=== PATIENT | female | born 1945 | race Caucasian/White ===

== ENCOUNTER 2022-02-09 08:41 | Emergency (ER) | payer MEDICARE ==
[~2022-02-09] VITALS: Ht 154.9 cm; Wt 100.5 kg
[2022-02-09 08:49] VITALS: BP 187/73
[2022-02-09] MEDS ORDERED: BRIM5DRO16 RIGHTEYE (10:24)
[2022-02-09] MEDS ORDERED: DILT180C53 PO (10:24)
[2022-02-09] MEDS ORDERED: MELO-100 PO (10:24)
[2022-02-09] MEDS ORDERED: SYN0.088T PO (10:24)
[2022-02-09] MEDS ORDERED: DORZ10DR18 RIGHTEYE (10:24)
[2022-02-09] MEDS ORDERED: XAL0.005OS OP (10:24)
[2022-02-09] MEDS ORDERED: HYDR25TA4 PO (10:24)
== END 2022-02-09 10:45 | disposition home or self-care (01) ==
LOC: ER 08:42
DX: S46.911A Strain of unspecified muscle, fascia and tendon at shoulder and upper arm level, right arm, initial encounter (principal); M25.511 Pain in right shoulder; E11.9 Type 2 diabetes mellitus without complications; Z98.890 Other specified postprocedural states; Z88.0 Allergy status to penicillin; Z79.899 Other long term (current) drug therapy; W19.XXXA Unspecified fall, initial encounter; Y93.89 Activity, other specified; Y92.89 Other specified places as the place of occurrence of the external cause; Y99.8 Other external cause status
CPT/HCPCS: 73030; 99284